=== PATIENT | male | born 1960 | race Caucasian/White ===

== ENCOUNTER 2016-05-08 12:01 | Inpatient (IN) | payer MEDICAID ==
[~2016-05-08] VITALS: Ht 170.2 cm; Wt 63.3 kg
[~2016-05-08 12:01] MED LIST: AUGMENTIN; OXYCODONE; TOPICAL
[2016-05-08 13:31] LABS: Basophils # (auto) 0.1 uL; Basophils % (auto) 1.1 % (0.0-2.0); Eosinophils # (auto) 0.1 uL; Eosinophils % (auto) 0.8 % (0.0-7.0); Hematocrit 43.9 % (41.0-53.0); Hemoglobin 14.1 g/dL (13.5-17.5); Lymphocytes # (auto) 2.5 uL; Mean Corpuscular Volume 87.4 fL (80.0-100.0); Mean Platelet Volume 7.4 fL (7.4-10.4); Monocytes # (auto) 0.8 uL; Neutrophils # (auto) 7.8 uL; Neutrophils % (auto) 69.1 % (37.0-80.0); Platelet Count (auto) 358 10^3/uL (140-450); Red Cell Distribution Width 17.4 % (11.6-16.0); White Blood Cell 11.3 10^3/uL (4.4-10.8)
[2016-05-08 14:02] LABS: Albumin 3.2 g/dL (3.4-5.0); BUN/Creatinine Ratio 18.7; Bilirubin, Total 0.4 mg/dL (0.2-1.0); Potassium 4.1 mmol/L (3.5-5.1); Total Protein 8.5 g/dL (6.4-8.2)
[2016-05-08] MEDS ORDERED: HYDROcodone-ACET 10/325MG TAB PO ONE (16:45)
[2016-05-08] MEDS ORDERED: CLINDAMYCIN 600MG IV 50 ML IV ONE (16:45)
[2016-05-08 17:41] LABS: INR 1.05 (0.9-1.15); Partial Thromboplastin Time 29.4 sec (22.64-33.71); Prothrombin Time 10.8 sec (9.37-12.3)
[2016-05-08] MEDS: SODIUM CHLORIDE 0.9% 1,000 ML IV SCH (22:08)
[2016-05-08 23:14] VITALS: BP 120/78
[2016-05-08] MEDS ORDERED: METH40TA13 PO (23:31)
[2016-05-09] MEDS: CLINDAMYCIN 600MG IV 50 ML IV SCH ×2 (01:00→08:48)
[2016-05-09 04:30] VITALS: BP 127/76
[2016-05-09] MEDS: HYDROcodone-ACET 10/325MG TAB PO PRN ×3 (04:51→22:02)
[2016-05-09 07:02] LABS: Basophils # (auto) 0 uL; Basophils % (auto) 0.4 % (0.0-2.0); Eosinophils # (auto) 0 uL; Eosinophils % (auto) 0.6 % (0.0-7.0); Hematocrit 42.9 % (41.0-53.0); Hemoglobin 13.7 g/dL (13.5-17.5); Lymphocytes # (auto) 1.9 uL; Lymphocytes % (auto) 25.1 % (10.0-50.0); Mean Corpuscular Hemoglobin 27.9 pg (28.0-32.0); Mean Corpuscular Hgb Conc. 31.9 g/dL (32.0-36.0); Mean Corpuscular Volume 87.2 fL (80.0-100.0); Mean Platelet Volume 7.8 fL (7.4-10.4); Monocytes # (auto) 0.5 uL; Neutrophils # (auto) 5.2 uL; Neutrophils % (auto) 66.9 % (37.0-80.0); Platelet Count (auto) 326 10^3/uL (140-450); Red Cell Distribution Width 17.2 % (11.6-16.0); White Blood Cell 7.8 10^3/uL (4.4-10.8)
[2016-05-09 07:06] LABS: Potassium 3.9 mmol/L (3.5-5.1)
[2016-05-09 07:15] LABS: Albumin 2.9 g/dL (3.4-5.0); BUN/Creatinine Ratio 16.7; Calcium 8.8 mg/dL (8.5-10.1)
[2016-05-09 07:18] LABS: Bilirubin, Total 0.4 mg/dL (0.2-1.0); Total Protein 7.8 g/dL (6.4-8.2)
[2016-05-09 09:11] VITALS: BP 135/77
[2016-05-09] MEDS ORDERED: VANCOMYCIN PER PHARMACY 0 MG IV SCH (10:45)
[2016-05-09] MEDS: SODIUM CHLORIDE 0.9% 1,000 ML IV SCH (11:04)
[2016-05-09] MEDS: VANCOMYCIN 1GM/250ML D5W 250 ML IV SCH ×2 (11:43→23:00)
[2016-05-09] MEDS: METHADONE HCL 10 MG TAB PO SCH (12:16)
[2016-05-09 13:00] VITALS: BP 106/49
[2016-05-09 16:55] VITALS: BP 113/61
[2016-05-09] MEDS: PRO-STAT 64 30ML PO SCH (18:00)
[2016-05-09] MEDS: MULTIPLE VITAMINS W/ MINERALS TAB PO SCH (18:07)
[2016-05-09 21:30] VITALS: BP 120/65
[2016-05-09] MEDS: ASCORBIC ACID 500 MG TAB PO SCH (22:02)
[2016-05-10] MEDS: SODIUM CHLORIDE 0.9% 1,000 ML IV SCH ×3 (00:22→23:50)
[2016-05-10 05:00] VITALS: BP 118/73
[2016-05-10] MEDS: HYDROcodone-ACET 10/325MG TAB PO PRN ×2 (05:44→22:24)
[2016-05-10 06:08] LABS: Basophils # (auto) 0 uL; Basophils % (auto) 0.4 % (0.0-2.0); Eosinophils # (auto) 0.2 uL; Eosinophils % (auto) 1.6 % (0.0-7.0); Hematocrit 40.6 % (41.0-53.0); Hemoglobin 12.9 g/dL (13.5-17.5); Lymphocytes # (auto) 3.4 uL; Mean Corpuscular Hemoglobin 27.6 pg (28.0-32.0); Mean Corpuscular Hgb Conc. 31.7 g/dL (32.0-36.0); Mean Corpuscular Volume 87.1 fL (80.0-100.0); Mean Platelet Volume 7.3 fL (7.4-10.4); Monocytes # (auto) 0.8 uL; Monocytes % (auto) 8.4 % (0.0-12.0); Neutrophils # (auto) 5.3 uL; Neutrophils % (auto) 54.6 % (37.0-80.0); Platelet Count (auto) 279 10^3/uL (140-450); Red Cell Distribution Width 17.7 % (11.6-16.0); White Blood Cell 9.6 10^3/uL (4.4-10.8)
[2016-05-10 06:24] LABS: INR 1.03 (0.9-1.15); Prothrombin Time 10.6 sec (9.37-12.3)
[2016-05-10 06:42] LABS: Calcium 8.5 mg/dL (8.5-10.1); Magnesium 2.2 mg/dL (1.6-2.6)
[2016-05-10] MEDS: PRO-STAT 64 30ML PO SCH ×2 (08:43→18:21)
[2016-05-10 09:36] VITALS: BP 110/67
[2016-05-10] MEDS: MULTIPLE VITAMINS W/ MINERALS TAB PO SCH (10:00)
[2016-05-10] MEDS: ASCORBIC ACID 500 MG TAB PO SCH ×2 (10:29→22:23)
[2016-05-10] MEDS: VANCOMYCIN 1GM/250ML D5W 250 ML IV SCH ×2 (11:00→22:31)
[2016-05-10] MEDS: METHADONE HCL 10 MG TAB PO SCH (12:00)
[2016-05-10 16:36] VITALS: BP 106/52
[2016-05-10 22:00] VITALS: BP 108/63
[2016-05-11 05:00] VITALS: BP 103/60
[2016-05-11] MEDS: PRO-STAT 64 30ML PO SCH ×2 (08:00→18:00)
[2016-05-11 08:41] VITALS: BP 111/65
[2016-05-11] MEDS: HYDROcodone-ACET 10/325MG TAB PO PRN ×2 (10:13→17:39)
[2016-05-11] MEDS: MULTIPLE VITAMINS W/ MINERALS TAB PO SCH (10:13)
[2016-05-11] MEDS: ASCORBIC ACID 500 MG TAB PO SCH ×2 (10:13→21:59)
[2016-05-11 10:55] LABS: Basophils # (auto) 0 uL; Basophils % (auto) 0.5 % (0.0-2.0); Eosinophils # (auto) 0.2 uL; Eosinophils % (auto) 2.2 % (0.0-7.0); Hematocrit 39.9 % (41.0-53.0); Hemoglobin 12.7 g/dL (13.5-17.5); Lymphocytes # (auto) 2.6 uL; Mean Corpuscular Hemoglobin 27.9 pg (28.0-32.0); Mean Corpuscular Hgb Conc. 31.8 g/dL (32.0-36.0); Mean Corpuscular Volume 87.8 fL (80.0-100.0); Mean Platelet Volume 7.3 fL (7.4-10.4); Monocytes # (auto) 0.7 uL; Monocytes % (auto) 7.8 % (0.0-12.0); Neutrophils # (auto) 5.1 uL; Neutrophils % (auto) 59.5 % (37.0-80.0); Platelet Count (auto) 249 10^3/uL (140-450); Red Cell Distribution Width 17.4 % (11.6-16.0); White Blood Cell 8.6 10^3/uL (4.4-10.8)
[2016-05-11 11:10] LABS: INR 1.04 (0.9-1.15); Prothrombin Time 10.7 sec (9.37-12.3)
[2016-05-11 11:12] LABS: BUN/Creatinine Ratio 27.3; Calcium 8.5 mg/dL (8.5-10.1); Potassium 4.1 mmol/L (3.5-5.1)
[2016-05-11] MEDS: VANCOMYCIN 1GM/250ML D5W 250 ML IV SCH ×2 (12:13→22:57)
[2016-05-11] MEDS: METHADONE HCL 10 MG TAB PO SCH (12:13)
[2016-05-11 13:00] VITALS: BP 127/77
[2016-05-11] MEDS: ceFAZolin 1GM/50ML D5W 50 ML IV SCH ×2 (14:51→22:00)
[2016-05-11] MEDS: SODIUM CHLORIDE 0.9% 1,000 ML IV SCH (16:21)
[2016-05-11 17:00] VITALS: BP 106/62
[2016-05-11 20:00] VITALS: BP 96/66
[2016-05-11] MEDS: CELECOXIB 100 MG CAP PO SCH (21:59)
[2016-05-11 22:00] VITALS: BP 96/66
[2016-05-12] VITALS (7 sets, daily range): BP systolic 88–109; BP diastolic 52–68
[2016-05-12] MEDS: SODIUM CHLORIDE 0.9% 1,000 ML IV SCH ×2 (05:34→19:01)
[2016-05-12] MEDS: HYDROcodone-ACET 10/325MG TAB PO PRN ×3 (05:34→18:43)
[2016-05-12] MEDS: ceFAZolin 1GM/50ML D5W 50 ML IV SCH ×2 (05:34→14:53)
[2016-05-12] MEDS: PRO-STAT 64 30ML PO SCH ×2 (08:00→18:19)
[2016-05-12] MEDS: ASCORBIC ACID 500 MG TAB PO SCH ×2 (10:17→22:11)
[2016-05-12] MEDS: CELECOXIB 100 MG CAP PO SCH ×2 (10:17→22:11)
[2016-05-12] MEDS: MULTIPLE VITAMINS W/ MINERALS TAB PO SCH (10:17)
[2016-05-12] MEDS: VANCOMYCIN 1GM/250ML D5W 250 ML IV SCH ×2 (10:20→23:12)
[2016-05-12] MEDS: METHADONE HCL 10 MG TAB PO SCH (12:17)
[2016-05-13 05:00] VITALS: BP 121/64
[2016-05-13] MEDS: PRO-STAT 64 30ML PO SCH ×2 (07:46→17:54)
[2016-05-13] MEDS: SODIUM CHLORIDE 0.9% 1,000 ML IV SCH ×2 (08:21→11:15)
[2016-05-13 09:15] VITALS: BP 107/64
[2016-05-13] MEDS: ASCORBIC ACID 500 MG TAB PO SCH ×2 (09:32→21:30)
[2016-05-13] MEDS: MULTIPLE VITAMINS W/ MINERALS TAB PO SCH (09:32)
[2016-05-13] MEDS: CELECOXIB 100 MG CAP PO SCH ×2 (09:32→21:30)
[2016-05-13] MEDS: HYDROcodone-ACET 10/325MG TAB PO PRN ×2 (09:33→19:57)
[2016-05-13] MEDS: VANCOMYCIN 1GM/250ML D5W 250 ML IV SCH ×2 (11:10→23:24)
[2016-05-13] MEDS: METHADONE HCL 10 MG TAB PO SCH (12:16)
[2016-05-13 13:00] VITALS: BP 109/60
[2016-05-13 17:00] VITALS: BP 108/63
[2016-05-13 22:00] VITALS: BP 117/51
[2016-05-13] MEDS ORDERED: TEMAZEPAM 15 MG CAP PO ONE (23:15)
[2016-05-14 05:00] VITALS: BP 109/64
[2016-05-14 05:16] LABS: Basophils # (auto) 0 uL; Basophils % (auto) 0.5 % (0.0-2.0); Eosinophils # (auto) 0.4 uL; Eosinophils % (auto) 4.5 % (0.0-7.0); Hematocrit 38.6 % (41.0-53.0); Hemoglobin 12.8 g/dL (13.5-17.5); Lymphocytes # (auto) 3.4 uL; Mean Corpuscular Hgb Conc. 33.1 g/dL (32.0-36.0); Mean Corpuscular Volume 87.5 fL (80.0-100.0); Mean Platelet Volume 7.4 fL (7.4-10.4); Monocytes # (auto) 0.6 uL; Monocytes % (auto) 7.1 % (0.0-12.0); Neutrophils # (auto) 3.9 uL; Neutrophils % (auto) 46.9 % (37.0-80.0); Platelet Count (auto) 247 10^3/uL (140-450); Red Cell Distribution Width 18.2 % (11.6-16.0); White Blood Cell 8.3 10^3/uL (4.4-10.8)
[2016-05-14 05:39] LABS: BUN/Creatinine Ratio 30.4; Calcium 8.8 mg/dL (8.5-10.1); Potassium 4.4 mmol/L (3.5-5.1)
[2016-05-14] MEDS: HYDROcodone-ACET 10/325MG TAB PO PRN (06:34)
[2016-05-14] MEDS: PRO-STAT 64 30ML PO SCH (07:54)
[2016-05-14 09:00] VITALS: BP 115/75
[2016-05-14] MEDS: MULTIPLE VITAMINS W/ MINERALS TAB PO SCH (09:06)
[2016-05-14] MEDS: CELECOXIB 100 MG CAP PO SCH (09:06)
[2016-05-14] MEDS: ASCORBIC ACID 500 MG TAB PO SCH (09:06)
[2016-05-14] MEDS: SODIUM CHLORIDE 0.9% 1,000 ML IV SCH (11:40)
[2016-05-14] MEDS: METHADONE HCL 10 MG TAB PO SCH (11:40)
[2016-05-14] MEDS: VANCOMYCIN 1GM/250ML D5W 250 ML IV SCH (11:40)
[2016-05-14] MEDS ORDERED: TEMAZEPAM 15 MG CAP PO PRN (12:30)
[2016-05-14 13:00] VITALS: BP 111/52
[2016-05-14 17:00] VITALS: BP 111/52
[2016-05-14] MEDS ORDERED: TEMAZEPAM 15 MG CAP PO ONE (22:00)
== END 2016-05-14 18:50 | disposition home or self-care (01) | DRG 383 ==
LOC: ER 12:01 → OVERFLOW 12:02 → CENTRAL 21:53
PROVIDERS: ADMIT Family Medicine; ATTEND Internal Medicine Pulmonary Disease
DX: L03.116 Cellulitis of left lower limb (principal); L02.413 Cutaneous abscess of right upper limb; S81.802A Unspecified open wound, left lower leg, initial encounter; B95.62 Methicillin resistant Staphylococcus aureus infection as the cause of diseases classified elsewhere; F17.210 Nicotine dependence, cigarettes, uncomplicated; Z59.0 Homelessness; Y93.89 Activity, other specified; Y92.89 Other specified places as the place of occurrence of the external cause; Y99.8 Other external cause status; W22.8XXA Striking against or struck by other objects, initial encounter
CPT/HCPCS: 36415; 71010; 73590; 80048; 80053; 80202; 83735; 85025; 85610; 85730; 87040; 87077; 87081; 87186; 87205; 94761; 96365; 96366; J0690; J3490

== ENCOUNTER 2017-03-14 22:54 | Emergency (ER) | payer MEDICAID ==
[~2017-03-14] VITALS: Ht 170.2 cm; Wt 63.5 kg
[~2017-03-14 22:54] MED LIST changes: -AUGMENTIN; +METH40TA13 PO; -OXYCODONE; -TOPICAL
[2017-03-15] MEDS ORDERED: SODIUM CHLORIDE 0.9% 1,000 ML IV ONE (07:15)
[2017-03-15] MEDS ORDERED: cefTRIAXone 1GM/10ml IVPUSH 10 ML IV ONE (07:15)
[2017-03-15 07:25] VITALS: BP 113/74
[2017-03-15 07:37] LABS: Basophils # (auto) 0.1 uL; Basophils % (auto) 0.5 % (0.0-2.0); Eosinophils # (auto) 0.2 uL; Eosinophils % (auto) 1.9 % (0.0-7.0); Hematocrit 39.8 % (41.0-53.0); Hemoglobin 13.3 g/dL (13.5-17.5); Lymphocytes # (auto) 2.4 uL; Lymphocytes % (auto) 21.8 % (10.0-50.0); Mean Corpuscular Hgb Conc. 33.4 g/dL (32.0-36.0); Mean Corpuscular Volume 89.7 fL (80.0-100.0); Mean Platelet Volume 6.6 fL (6.9-10.8); Monocytes % (auto) 9.1 % (0.0-12.0); Neutrophils # (auto) 7.4 uL; Neutrophils % (auto) 66.7 % (37.0-80.0); Nucleated Red Blood Cells % 0.1 %; Platelet Count (auto) 283 10^3/uL (140-450); Red Cell Distribution Width 15.5 % (11.8-14.3); White Blood Cell 11.1 10^3/uL (4.4-10.8)
[2017-03-15 07:54] LABS: BUN/Creatinine Ratio 21.9; Calcium 8.9 mg/dL (8.5-10.1)
[2017-03-15 07:57] LABS: Bilirubin, Total 0.3 mg/dL (0.2-1.0)
== END 2017-03-15 07:47 | disposition left against medical advice (07) ==
LOC: ER 22:54
DX: L30.9 Dermatitis, unspecified (principal); E44.1 Mild protein-calorie malnutrition; F11.20 Opioid dependence, uncomplicated; F12.10 Cannabis abuse, uncomplicated; F15.10 Other stimulant abuse, uncomplicated; F17.210 Nicotine dependence, cigarettes, uncomplicated; Z68.21 Body mass index [BMI] 21.0-21.9, adult
CPT/HCPCS: 36415; 80053; 85025; 87040

== ENCOUNTER 2017-11-13 01:11 | Emergency (ER) | payer MEDICAID ==
[~2017-11-13] VITALS: Ht 167.6 cm; Wt 68.0 kg
[2017-11-13 01:20] VITALS: BP 115/82
[2017-11-13] MEDS ORDERED: SODIUM CHLORIDE 0.9% 1,000 ML IV ONE (06:44)
== END 2017-11-13 06:50 | disposition left against medical advice (07) ==
LOC: EDBD 01:11 → ER 01:18
DX: S22.41XA Multiple fractures of ribs, right side, initial encounter for closed fracture (principal); R42 Dizziness and giddiness; R51 Headache; F17.210 Nicotine dependence, cigarettes, uncomplicated; F41.9 Anxiety disorder, unspecified; Z59.0 Homelessness; Y04.2XXA Assault by strike against or bumped into by another person, initial encounter; Y93.89 Activity, other specified; Y92.89 Other specified places as the place of occurrence of the external cause; Y99.8 Other external cause status
CPT/HCPCS: 71045; 71101

== ENCOUNTER 2017-11-13 10:19 | Emergency (ER) | payer MEDICAID ==
[~2017-11-13] VITALS: Ht 162.6 cm; Wt 49.9 kg
[2017-11-13 10:25] VITALS: BP 110/64
[2017-11-13] MEDS ORDERED: KETOROLAC TROMETH 60MG/2ML VIAL IM ONE (10:45)
== END 2017-11-13 13:09 | disposition home or self-care (01) ==
LOC: ER 10:19 → EDBD 10:19 → ER 13:09
DX: S22.41XA Multiple fractures of ribs, right side, initial encounter for closed fracture (principal); F17.210 Nicotine dependence, cigarettes, uncomplicated; R51 Headache; Z59.0 Homelessness; Y08.89XA Assault by other specified means, initial encounter; Y93.89 Activity, other specified; Y92.89 Other specified places as the place of occurrence of the external cause; Y99.8 Other external cause status

== ENCOUNTER 2018-07-21 00:58 | Emergency (ER) | payer MEDICAID ==
[~2018-07-21] VITALS: Ht 170.2 cm; Wt 59.0 kg
[~2018-07-21 00:58] MED LIST changes: +APIX5TAB PO; +ATOR20TA50 PO; +DOXY-216 PO; +MET25T PO; +SACC250C PO
[2018-07-21 01:06] VITALS: BP 117/83
[2018-07-21] MEDS ORDERED: IBUPROFEN 800 MG TAB PO ONE (05:00)
[2018-07-21] MEDS ORDERED: ACETAMINOPHEN 500 MG TAB PO ONE (05:00)
== END 2018-07-21 06:17 | disposition home or self-care (01) ==
LOC: EDBD 00:58 → ER 01:05
DX: M19.90 Unspecified osteoarthritis, unspecified site (principal); M25.572 Pain in left ankle and joints of left foot; M25.571 Pain in right ankle and joints of right foot; M25.522 Pain in left elbow; M25.521 Pain in right elbow; M25.562 Pain in left knee; M25.561 Pain in right knee; M25.512 Pain in left shoulder; M25.511 Pain in right shoulder; M25.532 Pain in left wrist; M25.531 Pain in right wrist
CPT/HCPCS: 93005

== ENCOUNTER 2018-08-12 03:51 | Emergency (ER) | payer MEDICAID ==
[~2018-08-12] VITALS: Ht 170.2 cm; Wt 61.2 kg
[2018-08-12 05:22] LABS: Basophils # (auto) 0 uL; Basophils % (auto) 0.8 % (0.0-2.0); Eosinophils # (auto) 0.3 uL; Eosinophils % (auto) 5.5 % (0.0-7.0); Hematocrit 44.6 % (41.0-53.0); Hemoglobin 14.8 g/dL (13.5-17.5); Lymphocytes % (auto) 37.8 % (10.0-50.0); Mean Corpuscular Hemoglobin 31.7 pg (28.0-32.0); Mean Corpuscular Hgb Conc. 33.1 g/dL (32.0-36.0); Mean Corpuscular Volume 95.5 fL (80.0-100.0); Monocytes # (auto) 0.7 uL; Neutrophils # (auto) 2.2 uL; Neutrophils % (auto) 42.9 % (37.0-80.0); Nucleated Red Blood Cells % 0.2 %; Platelet Count (auto) 215 10^3/uL (140-450); Red Blood Cells 4.67 10^6/uL (4.5-5.90); White Blood Cell 5.2 10^3/uL (4.4-10.8)
[2018-08-12 05:36] LABS: Albumin 2.9 g/dL (3.4-5.0); BUN/Creatinine Ratio 12.1; Calcium 8.4 mg/dL (8.5-10.1); Potassium 3.3 mmol/L (3.5-5.1)
[2018-08-12 05:38] VITALS: BP 101/56
[2018-08-12 05:38] LABS: Bilirubin, Total 0.4 mg/dL (0.2-1.0); Total Protein 7.6 g/dL (6.4-8.2)
[2018-08-12] MEDS ORDERED: CLINDAMYCIN 900MG IV 50 ML IV ONE (05:45)
[2018-08-12] MEDS ORDERED: KETOROLAC TROMETH 30 MG/ML 1ML VIAL IV ONE (05:45)
[2018-08-12 06:23] LABS: INR 1.02 (0.9-1.15)
[2018-08-12] MEDS ORDERED: THIAMINE 100mg/ml INJ (200mg/2ml VIAL) IV ONE (06:30)
[2018-08-12] MEDS ORDERED: ACETAMINOPHEN 325 MG TAB PO PRN (07:15)
[2018-08-12] MEDS ORDERED: TEMAZEPAM 15 MG CAP PO PRN (07:15)
[2018-08-12] MEDS ORDERED: ONDANSETRON HCL 4 MG/2 ML VIAL IV PRN (07:15)
[2018-08-12] MEDS ORDERED: HYDROcodone-ACET 5/325MG TAB PO PRN (07:15)
[2018-08-12] MEDS ORDERED: METOPROLOL TARTRATE 25 MG TAB PO SCH (10:00)
[2018-08-12] MEDS ORDERED: FAMOTIDINE 20 MG TAB PO SCH (10:00)
[2018-08-12] MEDS ORDERED: APIXABAN 5 MG TAB PO SCH (10:00)
[2018-08-12] MEDS ORDERED: CLINDAMYCIN 600MG IV 50 ML IV SCH (14:00)
[2018-08-12] MEDS ORDERED: ATORVASTATIN 20 MG TAB PO SCH (22:00)
== END 2018-08-12 07:34 | disposition left against medical advice (07) ==
LOC: ER 03:52
DX: L03.116 Cellulitis of left lower limb (principal); F04 Amnestic disorder due to known physiological condition; I48.92 Unspecified atrial flutter; F17.210 Nicotine dependence, cigarettes, uncomplicated; Z59.0 Homelessness; Z79.899 Other long term (current) drug therapy
CPT/HCPCS: 36415; 71045; 80053; 83735; 83880; 85025; 85610; 85730; 86141; 93005; 96365; 96375; 99284; J1885; J3411; J3490

== ENCOUNTER 2018-12-04 10:24 | Inpatient (IN) | payer MEDICAID ==
[~2018-12-04] VITALS: Ht 170.2 cm; Wt 48.1 kg
[2018-12-04] MEDS ORDERED: SODIUM CHLORIDE 0.9% 1,000 ML IV ONE ×2 (10:39)
[2018-12-04 11:19] LABS: Basophils # (auto) 0 uL; Eosinophils # (auto) 0 uL; Lymphocytes # (auto) 0.6 uL; Monocytes # (auto) 0.5 uL; Neutrophils # (auto) 4.4 uL
[2018-12-04 11:21] LABS: Basophils % (auto) 0.5 % (0.0-2.0); Hematocrit 45.5 % (41.0-53.0); Hemoglobin 15.2 g/dL (13.5-17.5); Lymphocytes % (auto) 10.4 % (10.0-50.0); Mean Corpuscular Hemoglobin 35.8 pg (28.0-32.0); Mean Corpuscular Hgb Conc. 33.4 g/dL (32.0-36.0); Mean Corpuscular Volume 107.2 fL (80.0-100.0); Monocytes % (auto) 9.2 % (0.0-12.0); Neutrophils % (auto) 79.9 % (37.0-80.0); Nucleated Red Blood Cells % 0.1 %; Red Blood Cells 4.24 10^6/uL (4.5-5.90); Red Cell Distribution Width 17.9 % (11.8-14.3); White Blood Cell 5.5 10^3/uL (4.4-10.8)
[2018-12-04 11:24] LABS: Platelet Count (auto) 50 10^3/uL (140-450)
[2018-12-04 11:28] LABS: Albumin 2.8 g/dL (3.4-5.0); Calcium 8.1 mg/dL (8.5-10.1)
[2018-12-04 11:33] LABS: BUN/Creatinine Ratio 21.7; Bilirubin, Total 2.5 mg/dL (0.2-1.0); Total Protein 6.9 g/dL (6.4-8.2)
[2018-12-04 11:35] LABS: INR 1.27 (0.9-1.15)
[2018-12-04 11:37] LABS: Potassium 2.9 mmol/L (3.5-5.1)
[2018-12-04] MEDS ORDERED: IOHEXOL 300 MG/ML 100ML BOTTLE IJ ONE (11:55)
[2018-12-04] MEDS ORDERED: POTASSIUM EFFERVESENT TAB 25 MEQ PO ONE ×2 (12:00→12:15)
[2018-12-04] MEDS ORDERED: FUROSEMIDE 20 MG/2 ML VIAL IV ONE (12:15)
[2018-12-04 13:11] LABS: Urine Bacteria FEW /hpf (None Seen); Urine Blood Negative /uL (Negative); Urine Mucus FEW (None Seen); Urine Specific Gravity 1.014 (1.001-1.035); Urine WBC 1 /hpf (0 - 3)
[2018-12-04 13:27] LABS: Amphetamine Screen, Urine NEGATIVE (NEGATIVE); Barbiturate Scree,Urine NEGATIVE (NEGATIVE); Benzodiazephine Screen, Urine NEGATIVE (NEGATIVE); Cannabinoid Screen, Urine NEGATIVE (NEGATIVE); Cocaine Screen, Urine NEGATIVE (NEGATIVE); Opiate Scree,Urine POSITIVE (NEGATIVE); Phencyclidine Screen, Urine NEGATIVE (NEGATIVE)
[2018-12-04] MEDS ORDERED: DILTIAZEM HCL 25 MG/5 ML VIAL IV ONE (13:30)
[2018-12-04] MEDS ORDERED: METHADONE HCL 10 MG TAB PO SCH (13:30)
[2018-12-04] MEDS ORDERED: ASPirin 81 mg TAB PO ONE (13:30)
[2018-12-04] MEDS ORDERED: MORPHINE SULF INJ 2 MG/ML SYRINGE 1ML IV PRN ×2 (13:30)
[2018-12-04] MEDS ORDERED: NITROGLYCERIN 0.4 MG SL TAB SL PRN (13:30)
[2018-12-04] MEDS ORDERED: METOPROLOL TARTRATE 25 MG TAB PO ONE (13:30)
[2018-12-04] MEDS ORDERED: LORazepam 2MG/ML-1ML VIAL IV ONE (13:30)
[2018-12-04] MEDS ORDERED: ONDANSETRON HCL 4 MG/2 ML VIAL IV PRN (13:30)
[2018-12-04] MEDS ORDERED: METHADONE HCL 10 MG TAB PO ONE (14:00)
[2018-12-04 14:29] LABS: CRP High Sensitivity 5.27 mg/dL (< 0.3)
[2018-12-04] MEDS: FOLIC ACID 1 MG, MULTIPLE VITAMIN 10 ML, MAGNESIUM SULF SDV 50% 8 MEQ, THIAMINE INJ 100... INJ SCH ×5 (15:10)
--- NOTE | 2018-12-04 16:15 | NUR ---
Telemetry admit from [facility] admitted to Telemetry unit after SBAR received. Patient oriented to Erika colin RN, unit, room, bed, and unit policies regarding patient care and visiting hours. Patient now on continuous telemetry monitoring, tele box #2 and telemetry reading on arrival to unit is A FLUTTER 70. Patient weighed by bed scale and encouraged to call if they need something. All questions and concerns addressed, patient verbalized understanding. BED ALARM ELECTRONICS SCALE TESTER LIGHT WITHIN REACH
--- NOTE | 2018-12-04 16:30 | NUR ---
Med rec Unable to complete patient's home med rec due to patient unable to recall and altered. No NOK or persons to call to verify home meds.
[2018-12-04 16:46] VITALS: BP 92/62
[2018-12-04 17:00] VITALS: BP 92/62
--- NOTE | 2018-12-04 18:04 | NUR ---
WOUND PHOTOS TAKEN
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
--- NOTE | 2018-12-04 19:35 | NUR ---
Opening Shift Note Assumed care of patient, awake and alert to self only. No S/S of distress/SOB or pain. Bed in lowest locked position, side rails up x2, call light within reach, bed alarm on. Dressing to right lateral neck noted to be clean, dry, and intact. Instructed on POC and to call for assist PRN, will continue to monitor for changes Q1hr and PRN.
[2018-12-04 22:00] VITALS: BP 93/65
[2018-12-04] MEDS: DOCUSATE SOD 100 MG CAP PO SCH (22:00)
[2018-12-04] MEDS: METOPROLOL TARTRATE 25 MG TAB PO SCH (22:00)
--- NOTE | 2018-12-04 22:00 | NUR ---
Night Medications Blood pressure noted to be 93/65 with 50 heart rate. Blood pressure and heart rate reassessed and found to be 93/56 with 92 heart rate. Lopressor held at this time. Patient refusing Colace, states he has had diarrhea. Patient instructed to call to inform staff the next time he has a bowel movement, patient verbalized understanding. No s/s of distress, will continue to monitor patient.
--- NOTE | 2018-12-04 22:00 | NUR ---
Hospitalist Paged Patient requesting medication for sleep, no orders noted at this time. yardage caller hospitalist paged, awaiting call back.
--- NOTE | 2018-12-04 22:05 | NUR ---
Hospitalist Returned Page supervisor liquid yeast hospitalist Cecy Oneill PLACEMENT INTERVIEWER returned page at this time, states that she will "put something in". Will monitor for new orders, implement as ordered, and continue to monitor patient.
[2018-12-04] MEDS ORDERED: TEMAZEPAM 15 MG CAP PO ONE (22:15)
--- NOTE | 2018-12-04 23:00 | NUR ---
Wound Care Cleansed patient's sacrum, buttocks, and bilateral upper and lower extremity with mild soap and water. Patient patted dry and Hydraguard cream applied. Patient tolerated well. Will continue to monitor.
[2018-12-05 05:00] VITALS: BP 108/57
--- NOTE | 2018-12-05 06:48 | NUR ---
Closing Note Patient lying in bed, awake and alert. Bed in lowest locked position, side rails up x2, call light within reach, bed alarm on. No s/s of distress. Will endorse care to dayshift RN.
[2018-12-05 07:24] LABS: Basophils # (auto) 0 uL; Eosinophils # (auto) 0 uL; Eosinophils % (auto) 0.2 % (0.0-7.0); Hemoglobin 15.3 g/dL (13.5-17.5); Lymphocytes # (auto) 1.5 uL; Neutrophils # (auto) 4.3 uL; Neutrophils % (auto) 68.2 % (37.0-80.0); White Blood Cell 6.3 10^3/uL (4.4-10.8)
--- NOTE | 2018-12-05 07:25 | NUR ---
Opening Shift Note: Assumed care of patient, awake and alert. No S/S of distress/SOB or pain. Sitting in bed. Bed in lowest locked position, side rails up x 2, call light within reach. Instructed on POC and to call for assist PRN, will continue to monitor for changes Q1hr and PRN.
[2018-12-05 07:26] LABS: Basophils % (auto) 0.2 % (0.0-2.0); Hematocrit 44.3 % (41.0-53.0); Lymphocytes % (auto) 23.7 % (10.0-50.0); Mean Corpuscular Hemoglobin 37.2 pg (28.0-32.0); Mean Corpuscular Hgb Conc. 34.6 g/dL (32.0-36.0); Mean Corpuscular Volume 107.5 fL (80.0-100.0); Monocytes # (auto) 0.5 uL; Monocytes % (auto) 7.7 % (0.0-12.0); Nucleated Red Blood Cells % 0.2 %; Platelet Count (auto) 52 10^3/uL (140-450); Red Blood Cells 4.12 10^6/uL (4.5-5.90); Red Cell Distribution Width 18.2 % (11.8-14.3)
[2018-12-05 07:33] LABS: INR 1.2 (0.9-1.15); Partial Thromboplastin Time 34.2 sec (23.64-32.05)
[2018-12-05 07:40] LABS: Albumin 2.7 g/dL (3.4-5.0); Calcium 8.2 mg/dL (8.5-10.1); Potassium 3.4 mmol/L (3.5-5.1)
[2018-12-05 07:43] LABS: BUN/Creatinine Ratio 17.7; Bilirubin, Total 3.7 mg/dL (0.2-1.0); Total Protein 6.9 g/dL (6.4-8.2)
[2018-12-05 08:13] VITALS: BP 99/61
[2018-12-05] MEDS ORDERED: GADOPENTETATE DIMEGLUMINE (10MMOL/20 ML) VIAL IV ONE (08:57)
[2018-12-05] MEDS: FAMOTIDINE 20 MG TAB PO SCH (09:43)
[2018-12-05] MEDS: METHADONE HCL 10 MG TAB PO SCH (09:44)
[2018-12-05] MEDS: DOCUSATE SOD 100 MG CAP PO SCH ×2 (10:00→21:24)
[2018-12-05] MEDS: METOPROLOL TARTRATE 25 MG TAB PO SCH ×2 (10:00→21:22)
[2018-12-05] MEDS: ASPirin 81 mg TAB PO SCH (10:00)
--- NOTE | 2018-12-05 11:40 | NUR ---
Wound Care: Cleansed patient's bilateral upper and lower extremities, sacrum, and buttocks with mild soap and water. Patient patted dry and Hydraguard cream applied. Patient tolerated well. Will continue to monitor.
--- NOTE | 2018-12-05 11:40 | NUR ---
Patient refused MRI at this time. Stating "I'm in too much pain." Will continue to monitor.
[2018-12-05] MEDS: FOLIC ACID 1 MG, MULTIPLE VITAMIN 10 ML, MAGNESIUM SULF SDV 50% 8 MEQ, THIAMINE INJ 100... INJ SCH ×5 (12:14)
--- NOTE | 2018-12-05 12:54 | NUR ---
NUTRITION CONSULT/ASSESSMENT NOTES Please refer to link notes of nutrition screen form filed under the intervention section of the plan of care for further details. Est. Needs based on IBW (67 kg): 1650 kcal to 2000 kcal (25-30 kcal/kgIBW), 67 gms to 80 gms pro (1.0-1.2 gms/kgIBW). Will continue to monitor pertinent labs and reassess nutrient need prn Thank you for this consult. Addendum: 12/05/18 at [address] Amended: Links added.
[2018-12-05 13:00] VITALS: BP 92/62
[2018-12-05] MEDS ORDERED: GASTROGRAFIN 30 ML SOL ONE (14:38)
[2018-12-05] MEDS ORDERED: POTASSIUM CHL 20 Meq TABLET PO ONE (14:45)
[2018-12-05] MEDS ORDERED: IOHEXOL 300 MG/ML 100ML BOTTLE IJ ONE (15:03)
[2018-12-05] MEDS: POTASSIUM CHL 20 Meq TABLET PO SCH ×2 (15:04→17:21)
[2018-12-05 16:47] VITALS: BP 93/62
--- NOTE | 2018-12-05 18:15 | NUR ---
IV removed by radiology. Attempted to place IV, after one unsuccessful try, patient refused another try. Will relay to the noc shift.
--- NOTE | 2018-12-05 19:25 | NUR ---
Opening Shift Note Assumed care of patient, awake and alert. No S/S of distress/SOB. Patient reporting 8/10 generalized pain, also states he now "wants an IV". Per report from dayshift RN, patient's heart rate has "been in the 140's all day". Will administer pain medication as ordered and attempt IV reinsertion. Will also administer ordered Lopressor, pending stable blood pressure and heart rate assessment. Bed in lowest locked position, side rails up x2, call light within reach, bed alarm on. Instructed on POC and to call for assist PRN, will continue to monitor for changes Q1hr and PRN.
--- NOTE | 2018-12-05 20:02 | NUR ---
Sleeping Pill Spoke with investigation officer hospitalist ARTURO Marinelli, patient requesting another sleeping pill. New order received for Restoril 15 mg PO one time dose. Order read back and verified, will implement and continue to monitor patient.
[2018-12-05] MEDS ORDERED: TEMAZEPAM 15 MG CAP PO ONE (20:15)
--- NOTE | 2018-12-05 20:50 | NUR ---
IV insertion IV access obtained by charge nurse Anahi MILLER, via clean sterile technique by inserting 20 gauge catheter to patient's left hand after three attempts. IV secured properly. No trauma to site. Patient tolerated well. Ordered banana bag reconnected and continues infusing as ordered. No s/s of distress. Will continue to monitor.
[2018-12-05] MEDS: ACETAMINOPHEN 500 MG TAB PO PRN (21:21)
--- NOTE | 2018-12-05 21:22 | NUR ---
Medications Administer Lopressor, Restoril, and Tylenol as ordered. Patient's heart rate remains a-flutter in the 90's to sinus tachycardia in the 140's per manager monitoringconveyor monitor Erika. Will continue to monitor patient.
[2018-12-05 22:17] VITALS: BP 108/74
--- NOTE | 2018-12-05 22:20 | NUR ---
Vagal Maneuver Vagal maneuver attempted twice with patient. Heart rate dropped to the 70's on first try before rising again to the 140's. Maneuver attempted again, no drop in heart rate. No s/s of distress. Will perform EKG and continue care.
--- NOTE | 2018-12-05 22:26 | NUR ---
EKG Patient's heart rate remains sinus tachycardia in the 140's. No s/s of distress. EKG done, machine reading supraventricular tachycardia and 141 beats per minute. EKG shown to button breaker hospitalist ARTURO Marinelli, new order received for 10 mg IV Cardizem one time dose. Order read back and verified. Will implement as ordered and continue to monitor.
[2018-12-05] MEDS ORDERED: DILTIAZEM HCL 25 MG/5 ML VIAL IV ONE (22:30)
--- NOTE | 2018-12-05 22:52 | NUR ---
Hypotension Cardizem prepared as ordered. Vital signs checked prior to Cardizem administration: blood pressure 97/78. 140 heart rate, 98% oxygen saturation. Cardizem held at this time. Charge nurse Anahi MILLER aware of patient's status. Will continue care.
--- NOTE | 2018-12-05 22:55 | NUR ---
motion picture actor hospitalist paged motion picture actor hospitalist paged regarding patient's blood pressure. Awaiting call back. Will continue care.
--- NOTE | 2018-12-06 | NUR ---
Hospitalist Paged No return call from blasting contract miner hospitalist, paged again at this time. Awaiting call back. Will continue care.
--- NOTE | 2018-12-06 00:07 | NUR ---
Hospitalist Returned Paged call center trainer hospitalist ARTURO Marinelli returned page at this time. New order received for 0.5 mg IV Digoxin one time dose. Order read back and verified, will administer as ordered and continue to monitor.
[2018-12-06] MEDS ORDERED: DIGOXIN (250MCG/ML) 2 ML AMPULE IV ONE (00:15)
--- NOTE | 2018-12-06 00:30 | NUR ---
Digoxin Administration Vital signs assessed and found to be blood pressure 103/69, 109 heart rate, 99% oxygen saturation. Patient's apical pulse assessed for one minute and found to be 120 beats per minute. hvac/r service technician Chelsey called and informed of medication administration, told to call for any changes, Chelsey verbalized understanding. Medication administered via IV push over ten minutes, patient tolerated well. No s/s of distress. Will continue to monitor. Addendum: 12/06/18 at 0208 by RAJINDER GUTIÉRREZ RN RN ADDITION: Rate and rhythm monitored o telemetry box by this RN also.
--- NOTE | 2018-12-06 00:45 | NUR ---
Wound Care Cleansed patient's sacrum, buttocks, and bilateral upper and lower extremity with mild soap and water. Patient patted dry and Hydraguard cream applied. New linenes provided. Patient tolerated well. Will continue to monitor.
--- NOTE | 2018-12-06 01:00 | NUR ---
Heart Rate Patient's heart rate and rhythm a-flutter 80's-90's. No s/s of distress. Will continue to monitor.
--- NOTE | 2018-12-06 02:09 | NUR ---
Rounding Patient lying in bed, eyes closed, respirations even and unlabored, appears asleep. No s/s of distress. Heart rate and rhythm a-flutter in the 70's. Will continue to monitor patient.
--- NOTE | 2018-12-06 05:00 | NUR ---
Pain Patient reporting 7/10 pain for 05:00 vital sign check. When asked by RN if patient was pain, patient states he is "fine". No s/s of distress. Will continue to monitor.
[2018-12-06 05:59] VITALS: BP 101/77
--- NOTE | 2018-12-06 07:20 | NUR ---
Opening Shift Note: Assumed care of patient, awake and alert. Patient states "I am having pain all over". Patient notified that pain meds are not due. Bed in lowest locked position, side rails up x2, call light within reach. Instructed on POC and to call for assist PRN, will continue to monitor for changes Q1hr and PRN.
--- NOTE | 2018-12-06 07:32 | NUR ---
Closing Note Patient lying in bed, awake and alert. Bed in lowest locked position, side rails up x2, call light within reach. No s/s of distress. Care endorsed to dayshift RN.
[2018-12-06 08:45] VITALS: BP 111/72
[2018-12-06] MEDS: ASPirin 81 mg TAB PO SCH (10:00)
[2018-12-06] MEDS: DOCUSATE SOD 100 MG CAP PO SCH ×2 (10:00→21:57)
[2018-12-06] MEDS: METHADONE HCL 10 MG TAB PO SCH (10:23)
[2018-12-06] MEDS: FAMOTIDINE 20 MG TAB PO SCH (10:23)
[2018-12-06] MEDS: METOPROLOL TARTRATE 25 MG TAB PO SCH ×2 (10:24→21:55)
--- NOTE | 2018-12-06 12:19 | NUR ---
Dr. Esparza paged. Patient states he is going through withdrawals and having "Dts".
[2018-12-06 12:23] VITALS: BP 153/86
[2018-12-06] MEDS: FOLIC ACID 1 MG, MULTIPLE VITAMIN 10 ML, MAGNESIUM SULF SDV 50% 8 MEQ, THIAMINE INJ 100... INJ SCH ×5 (14:46)
[2018-12-06] MEDS: chlordiazePOXIDE HCL 25 MG CAP PO PRN ×2 (15:11→23:15)
--- NOTE | 2018-12-06 16:17 | NUR ---
Patient refused wound care and hydroguard at this time. Will try again.
[2018-12-06 16:50] VITALS: BP 102/65
--- NOTE | 2018-12-06 18:00 | NUR ---
Patient has small pocket knife on him. Patient refusing to hand it over. Charge nurse notified. Security notified.
--- NOTE | 2018-12-06 18:34 | NUR ---
Patient gave pocket knife to security. House sup put item in safe. Patient notified.
[2018-12-06] MEDS ORDERED: POTASSIUM CHL 20 Meq TABLET PO ONE (19:15)
--- NOTE | 2018-12-06 19:25 | NUR ---
Opening Shift Note Assumed care of patient, awake and alert. No S/S of distress/SOB or pain. Bed in lowest locked position, side rails up x2, call light within reach, bed alarm on. Dressing to right lateral neck noted to be clean, dry, and intact. Instructed on POC and to call for assist PRN, will continue to monitor for changes Q1hr and PRN.
--- NOTE | 2018-12-06 20:35 | NUR ---
Potassium 40 mEq of Potassium administered as ordered. Will administer another 40 mEq in two hours as ordered and continue to monitor patient.
[2018-12-06] MEDS: ACETAMINOPHEN 500 MG TAB PO PRN (21:56)
[2018-12-06 22:00] VITALS: BP 100/59
--- NOTE | 2018-12-06 22:00 | NUR ---
Hospitalist Paged Patient requesting medication for sleep, no orders noted at this time. inbound call center representative hospitalist paged, awaiting call back.
--- NOTE | 2018-12-06 22:35 | NUR ---
Potassium Second dose of 40 mEq of Potassium administered as ordered. Patient tolerating well. Will continue to monitor.
--- NOTE | 2018-12-06 22:50 | NUR ---
Hospitalist Returned Page operations boardman hospitalist Ugo Palomo DIRECTOR PRESALES returned page at this time. New order received for Restoril 15 mg PO one time dose. Order read back and verified, will implement as ordered and continue to monitor patient.
[2018-12-06] MEDS ORDERED: TEMAZEPAM 15 MG CAP PO ONE (23:00)
--- NOTE | 2018-12-06 23:10 | NUR ---
Refusing wound care Patient refused wound care and hydroguard at this time, states he "just wants to sleep". Will try again.
--- NOTE | 2018-12-07 04:00 | NUR ---
Refusing wound care Patient refusing wound care at this time. Patient educated on importance of wound care and hygiene in plan of care, patient continues to refuse. No s/s of distress. Will continue to monitor.
[2018-12-07 05:31] VITALS: BP 148/32
--- NOTE | 2018-12-07 06:55 | NUR ---
Closing Note Patient lying in bed, eyes closed, respirations even and unlabored, appears asleep Bed in lowest locked position, side rails up x2, call light within reach. No s/s of distress. Care endorsed to dayshift RN.
--- NOTE | 2018-12-07 07:39 | NUR ---
Opening Shift Note: Assumed care of patient, awake and alert x3. Patient states that he was confused throughout the night and many "times forgot where I was". Bed in lowest locked position, side rails up x2, call light within reach, bed alarm on. No S/S of distress/SOB or pain. Instructed on POC and to pati lfor assist PRN, will continue to monitor for changes Q1hr and PRN.
[2018-12-07 08:57] LABS: Hepatitis B Surface Antibody Negative
[2018-12-07 09:00] VITALS: BP 120/69
[2018-12-07 09:36] LABS: Hepatitis A Total Antibody Negative
[2018-12-07] MEDS: ASPirin 81 mg TAB PO SCH (10:00)
[2018-12-07] MEDS: DOCUSATE SOD 100 MG CAP PO SCH ×2 (10:00→22:00)
[2018-12-07] MEDS: FAMOTIDINE 20 MG TAB PO SCH (10:14)
[2018-12-07] MEDS: METOPROLOL TARTRATE 25 MG TAB PO SCH (10:14)
[2018-12-07] MEDS: METHADONE HCL 10 MG TAB PO SCH (10:16)
[2018-12-07] MEDS ORDERED: SACUBITRIL-VALSARTAN 24mg/26mg TAB PO ONE (11:00)
[2018-12-07] MEDS ORDERED: FUROSEMIDE 40 MG/4 ML VIAL IV ONE (11:00)
--- NOTE | 2018-12-07 12:38 | NUR ---
Patient refused wound care.
[2018-12-07 13:00] VITALS: BP 101/71
[2018-12-07 13:19] LABS: Hepatitis B Core Total AB Positive; Hepatitis B Surface Antigen Negative (Negative)
[2018-12-07 13:20] LABS: Hepatitis C Antibody Positive (Negative)
--- NOTE | 2018-12-07 13:22 | NUR ---
Patient positive for Hep C
[2018-12-07] MEDS: FOLIC ACID 1 MG, MULTIPLE VITAMIN 10 ML, MAGNESIUM SULF SDV 50% 8 MEQ, THIAMINE INJ 100... INJ SCH ×5 (13:52)
--- NOTE | 2018-12-07 14:57 | NUR ---
Dr. Esparza notified of patients positive Hep. C
--- NOTE | 2018-12-07 15:33 | NUR ---
Patient refused barrier cream Addendum: 12/07/18 at 1533 by LAMBERTO ORLANDO RN RN Amended: Links added.
[2018-12-07 17:00] VITALS: BP 86/55
--- NOTE | 2018-12-07 17:05 | NUR ---
Discharge planning per consult, patient has an order for information regarding homelessness, meds, food, transportation, ETOH and drug abuse. On several occasions throughout the day, I attempted to encounter patient, he was asleep each time and he did not respond to close verbal stimulation. Will try again to encounter patient on 12.08.18 to provide resources. Addendum: 12/07/18 at 1707 by FAUSTO OLIVAREZ Amended: Links added. Addendum: 12/08/18 at 1800 by FAUSTO OLIVAREZ Encounter patient today and he was awake and alert. Patient was provided information (a list of: names, numbers, and email to multiple agencies/facilities) related to the following healthcare social worker to assist patient if needed upon discharge: Government Agencies (to call 211 for assistance), food, health/hospital, homeless shelters, mental health services, laundry, thrift stores, gyms, churches, alcohol/substance abuse, senior citizen services, domestic violence, and legal services. Patient advised that upon discharge he/she will be provided with a sack lunch, clothes and transportation if needed. Patient verbalized understanding. He was provided with the following resources: [facility], [facility], [facility], [employer], [facility], [place], and [facility] the [facility] for food, [facility] and ETOH program, [facility] Recovery program, [facility], for ETOH/Drug Abuse,and [facility] for medicine and transportation. Patient also has an order for SNF placement. Referral sent to the following: [facility], [facility], [facility], and [facility].
[2018-12-07] MEDS: FUROSEMIDE 40 MG/4 ML VIAL IV SCH (18:00)
--- NOTE | 2018-12-07 18:26 | NUR ---
Patient refuse wound care and barrier cream at this time.
--- NOTE | 2018-12-07 19:00 | NUR ---
OPENING NOTE- NOC SHIFT PATIENT IS AN INMATE. ONE FEMALE GUARD AT BEDSIDE. PATIENT IS IN BED, BED IS LOCKED IN LOWEST POSITION, BED RAILS UP X2 AND HEAD OF BED IS UP >30 DEGREES FOR SAFETY PRECAUTIONS. BEDSIDE TABLE IS WITHIN REACH, CALL LIGHT IS WITHIN REACH. PATIENT IS NOT WEARING CUFFS, PER GUARD PATIENT WILL NOT BE WEARING CUFFS DURING THIS STAY. NO OPEN WOUNDS. PATIENT IS COMFORTABLE IN BED, DENIES PAIN AT THIS TIME. DISCUSSED POC WITH PATIENT AND INSTRUCTED PATIENT TO CALL PRN; PATIENT VERBALIZED UNDERSTANDING. WILL CONTINUE TO MONITOR Q1H AND PRN. Addendum: 12/07/18 at 1368 by Reny Sims RN PLEASE DISREGARD THIS NOTE; THIS NOTE IS FOR A DIFFERENT PATIENT.
--- NOTE | 2018-12-07 19:05 | NUR ---
OPENING NOTE- NOC SHIFT PATIENT IS ALERT AND ORIENTED X4. PATIENT IS IN BED, BED IS LOCKED AT LOWEST POSITION, BED RAILS UP X2 AND HEAD OF BED IS UP>30 DEGREES FOR SAFETY PRECAUTIONS. DISCUSSED POC WITH PATIENT AND INSTRUCTED PATIENT TO CALL PRN; PATIENT VERBALIZED UNDERSTANDING. WILL CONTINUE TO MONITOR Q1H AND PRN.
--- NOTE | 2018-12-07 19:15 | NUR ---
PATIENT REFUSED DINNER
[2018-12-07 20:05] VITALS: BP 85/57
--- NOTE | 2018-12-07 20:40 | NUR ---
BP 85/57 PAGED HOSPITALIST
--- NOTE | 2018-12-07 21:00 | NUR ---
RECEIVED ORDERS FOR LOW BP
[2018-12-07] MEDS ORDERED: ALBUMIN 5% 250 ML IV ONE (21:15)
[2018-12-07 21:57] VITALS: BP 85/57
[2018-12-07] MEDS ORDERED: CARVEDILOL 12.5 MG TAB PO SCH (22:00)
[2018-12-07] MEDS ORDERED: SACUBITRIL-VALSARTAN 24mg/26mg TAB PO SCH (22:00)
--- NOTE | 2018-12-08 | NUR ---
BP 97/65 HR 73
[2018-12-08] MEDS: FUROSEMIDE 40 MG/4 ML VIAL IV SCH ×2 (05:35→18:00)
[2018-12-08 05:49] VITALS: BP 87/50
--- NOTE | 2018-12-08 05:59 | NUR ---
BP 87/50 HR 77 AFLUTTER PATIENT IN BED ASYMPTOMATIC. PATIENT WEIGHT IS 48 kg.
--- NOTE | 2018-12-08 06:08 | NUR ---
PAGED HOSPITALIST FOR BP 87/50
--- NOTE | 2018-12-08 06:33 | NUR ---
RECEIVED ORDERS FOR LOW BP
--- NOTE | 2018-12-08 06:45 | NUR ---
ORDER FOR ALBUMIN PROCESSING.
[2018-12-08] MEDS ORDERED: ALBUMIN 5% 250 ML IV ONE (06:50)
--- NOTE | 2018-12-08 07:10 | NUR ---
Opening Shift Note Received report and assumed care,patient checked asleep,easily arousable. No S/S of distress/SOB or pain. Instructed on POC and nursing routines,to call for assistance as needed,call light within reach,will continue to monitor for changes Q1hr and PRN.
--- NOTE | 2018-12-08 07:15 | NUR ---
ENDORSED PATIENT CARE TO DAY SHIFT NURSE MYA MILLER NO S/SX OF DISTRESS OR SOB.
--- NOTE | 2018-12-08 08:30 | NUR ---
Patient reminded to keep NPO no food or water at this time,explain importance of pending Barrium Swallow Study,patient verbalied understanding.
[2018-12-08 09:00] VITALS: BP 92/53
[2018-12-08] MEDS ORDERED: BARIUM SULFATE 98% 340 GM PWDR ONE (09:07)
[2018-12-08] MEDS ORDERED: EZ-GAS II GRANULES (RADIOLOGY USE) PO ONE (09:08)
[2018-12-08] MEDS ORDERED: EZ PAQUE SUSP 12OZ BTL ONE (09:08)
[2018-12-08] MEDS ORDERED: GASTROGRAFIN 120 ML SOL ONE (09:12)
[2018-12-08] MEDS: DOCUSATE SOD 100 MG CAP PO SCH ×2 (10:00→21:14)
--- NOTE | 2018-12-08 10:00 | NUR ---
MORNING DOSE OF COREG 12.5 AND ENTRESTO 24-26 HOLD DUE TO SBP 92/53
--- NOTE | 2018-12-08 11:00 | NUR ---
PATIENT BACK TO RADIOLOGY DEPT. TELEMETRY SHOWING HR OF ATRIAL FLUTTER OF 140,NO DISTRESS NO DISCOMFORT,PAGED LINDA ARMENTA CARDIOLOGY CHIEF MEDICAL DIRECTOR AND ALSO DR. CURTIS,AWAITING FOR CALL BACK.
[2018-12-08] MEDS: METHADONE HCL 10 MG TAB PO SCH (11:19)
[2018-12-08] MEDS: FAMOTIDINE 20 MG TAB PO SCH (11:19)
--- NOTE | 2018-12-08 12:30 | NUR ---
KEENAN ARMENTA CARDIOLOGY CEMETERY WARDEN CALLED,INFORMED OF RUNS OF ATRIAL FLUTTER 140'S ESPECIALLY WITH ACTIVITY,FREQUENT PVC'S AND SBP OF LOW 80'S DURING TERMINAL WORKER AND THIS A.M. MADE AWARE COREG AND ENTRESTO WAS HELD,RECEIVED ORDERS FOR PARAMETERS.
--- NOTE | 2018-12-08 12:40 | NUR ---
Called lab and informed to come draw blood works ordered
[2018-12-08 13:00] VITALS: BP 91/66
[2018-12-08 13:31] LABS: Basophils # (auto) 0 uL; Eosinophils # (auto) 0 uL; Neutrophils # (auto) 2.9 uL; White Blood Cell 5.1 10^3/uL (4.4-10.8)
[2018-12-08 13:32] LABS: Basophils % (auto) 0.1 % (0.0-2.0); Eosinophils % (auto) 0.6 % (0.0-7.0); Hematocrit 49.2 % (41.0-53.0); Hemoglobin 16.7 g/dL (13.5-17.5); Lymphocytes # (auto) 1.4 uL; Lymphocytes % (auto) 26.9 % (10.0-50.0); Mean Corpuscular Hemoglobin 37.1 pg (28.0-32.0); Mean Corpuscular Volume 109.1 fL (80.0-100.0); Monocytes # (auto) 0.7 uL; Monocytes % (auto) 14.8 % (0.0-12.0); Neutrophils % (auto) 57.6 % (37.0-80.0); Nucleated Red Blood Cells % 0.3 %; Platelet Count (auto) 128 10^3/uL (140-450); Red Blood Cells 4.51 10^6/uL (4.5-5.90); Red Cell Distribution Width 17.5 % (11.8-14.3)
[2018-12-08 13:43] LABS: BUN/Creatinine Ratio 35.6; Calcium 8.8 mg/dL (8.5-10.1); Potassium 4.4 mmol/L (3.5-5.1)
[2018-12-08 13:49] LABS: Cholesterol 115 mg/dL (< 200)
[2018-12-08 13:52] LABS: HDL Cholesterol 21 mg/dL (40-59); LDL Cholesterol 84 mg/dL (< 100); Triglycerides 110 mg/dL (< 150)
--- NOTE | 2018-12-08 15:19 | NUR ---
Álvaro ARMENTA CARDIOLOGY AUTOMATIC STACKER CALLED AND INFORMED OF LAB WORKS,RECEIVED ORDER FOR DIGOXIN,SEE WRITTEN ORDER
[2018-12-08] MEDS ORDERED: VANCOMYCIN PER PHARMACY 0 MG IV SCH (15:45)
[2018-12-08] MEDS: ASPirin 81 mg TAB PO SCH (15:57)
[2018-12-08] MEDS: DIGOXIN 0.125 MG TAB PO SCH (15:57)
--- NOTE | 2018-12-08 16:20 | NUR ---
MD VISIT DR. CURTIS HERE TO SEE AND EXAMINED PATIENT,EXPLAIN DISEASE PROCESS AND PLAN OF CARE TO PATIENT,MD AWARE OF LOW BP,EPISODES OF ATRIAL FLUTTER WITH FREQUENT PVC'S AND HR OF 140'S,RECEIVED ORDERS
--- NOTE | 2018-12-08 16:29 | NUR ---
assessment Patient is a 58 year old male who is alert and oriented. Prior to admission patient was homeless and was able to function independently. Patient informed me [place] on the [place] of [address] [place]. Patient informed me he had to come to ER because he was very weak and noticed a lump on his neck. Patient may benefit from SNF for rehab prior to going to a snf on discharge. Patient informed me he has been to [facility] and they helped him re-gain some strength in the past. Chelsey MALAGON will provide patient with homeless resources and the homeless waiver form. Patient will be offered food, and clothing on discharge. Patient verbalized understanding and agreed to SNF on discharge. Addendum: 12/08/18 at 1634 by Hayley IVEY Amended: Links added.
[2018-12-08 17:00] VITALS: BP 87/43
[2018-12-08] MEDS: VANCOMYCIN 750mg/250ml 250 ML IV SCH (18:11)
--- NOTE | 2018-12-08 18:15 | NUR ---
VITAL SIGNS TAKEN BP 82/58,HR99,TEMP.96.1,O2 SAT ON ROOM AIR 94%
--- NOTE | 2018-12-08 19:00 | NUR ---
OPENING NOTE- NOC SHIFT PATIENT IS IN BED, BED IS IN LOWEST POSITION, BEDSIDE TABLE WITHIN REACH, CALL LIGHT WITHIN REACH. DISCUSSED POC WITH PATIENT AND INSTRUCTED PATIENT TO CALL PRN; PATIENT VERBALIZED UNDERSTANDING. WILL CONTINUE TO MONITOR Q1H AND PRN. NO S/SX OF DISTRESS OF SOB.
--- NOTE | 2018-12-08 19:20 | NUR ---
STATUS UNCHANGED NO DISTRESS NO DISCOMFORT,REPORT GIVEN TO INCOMING NOC SHIFT RN.
[2018-12-08] MEDS: SODIUM CHLORIDE 0.9% 1,000 ML IV SCH (19:49)
[2018-12-08 20:00] VITALS: BP 94/64
[2018-12-08 21:18] VITALS: BP 94/64
[2018-12-08] MEDS: CARVEDILOL 12.5 MG TAB PO SCH (21:18)
[2018-12-08] MEDS ORDERED: PIPERACILLIN-TAZO 4.5GM 100 ML IV SCH (22:00)
[2018-12-08] MEDS ORDERED: SACUBITRIL-VALSARTAN 24mg/26mg TAB PO SCH (22:00)
[2018-12-08] MEDS: PIPERACILLIN-TAZO 4.5GM 100 ML IV SCH ×2 (22:06→22:08)
[2018-12-09] MEDS: VANCOMYCIN 750mg/250ml 250 ML IV SCH ×2 (04:44→17:59)
[2018-12-09 04:56] VITALS: BP 95/55
[2018-12-09] MEDS: PIPERACILLIN-TAZO 4.5GM 100 ML IV SCH ×3 (06:03→22:34)
[2018-12-09 08:00] VITALS: BP 85/61
[2018-12-09] MEDS: DOCUSATE SOD 100 MG CAP PO SCH ×2 (10:00→22:11)
[2018-12-09] MEDS: DIGOXIN 0.125 MG TAB PO SCH (10:08)
[2018-12-09] MEDS: CARVEDILOL 12.5 MG TAB PO SCH ×2 (10:12→22:00)
[2018-12-09] MEDS: FAMOTIDINE 20 MG TAB PO SCH (10:12)
[2018-12-09] MEDS: ASPirin 81 mg TAB PO SCH (10:13)
--- NOTE | 2018-12-09 10:39 | NUR ---
Zoll Vest: Jonny Sierral Life Vest Rep here to gather information on pt for vest
[2018-12-09 10:45] LABS: Basophils # (auto) 0 uL; Basophils % (auto) 0.9 % (0.0-2.0); Eosinophils # (auto) 0.1 uL; Eosinophils % (auto) 1.5 % (0.0-7.0); Hematocrit 41.8 % (41.0-53.0); Hemoglobin 14.5 g/dL (13.5-17.5); Lymphocytes # (auto) 1.1 uL; Lymphocytes % (auto) 25.2 % (10.0-50.0); Mean Corpuscular Hemoglobin 37.5 pg (28.0-32.0); Mean Corpuscular Hgb Conc. 34.5 g/dL (32.0-36.0); Mean Corpuscular Volume 108.7 fL (80.0-100.0); Monocytes # (auto) 0.8 uL; Monocytes % (auto) 17.6 % (0.0-12.0); Neutrophils # (auto) 2.3 uL; Neutrophils % (auto) 54.8 % (37.0-80.0); Nucleated Red Blood Cells % 0.1 %; Platelet Count (auto) 112 10^3/uL (140-450); Red Blood Cells 3.85 10^6/uL (4.5-5.90); Red Cell Distribution Width 17.3 % (11.8-14.3); White Blood Cell 4.3 10^3/uL (4.4-10.8)
[2018-12-09 10:48] LABS: Albumin 2.6 g/dL (3.4-5.0); BUN/Creatinine Ratio 26.2; Calcium 8.3 mg/dL (8.5-10.1); Potassium 3.9 mmol/L (3.5-5.1)
[2018-12-09 10:51] LABS: Bilirubin, Total 1.5 mg/dL (0.2-1.0)
[2018-12-09 12:00] VITALS: BP 92/51
--- NOTE | 2018-12-09 12:44 | NUR ---
Nutrition Follow-up Notes Wt.: 46.9 kg Pt was sleeping with no family by beside. per records pt with mass in neck unable to do MRI due to pain. pt with no distress noted per nursing. pt is currently on cardiac diet soft with inadequate PO of < 50% x 4 per RN doc Est. Needs based on IBW (67 kg): 1650 kcal to 2000 kcal (25-30 kcal/kgIBW), 67 gms to 80 gms pro (1.0-1.2 gms/kgIBW). Will continue to monitor pertinent labs and reassess nutrient need prn Labs: CA 8.3 L, ALB 2.6 L, COLIN 1.5 H Skin: Jorge Luis scale 16, mod risk, pt's with multiple scabs and bx at neck site per territory outside sales manager. GI: Pt had 2 BM this morning per territory outside sales manager. PES: Increased nutrient needs r/t current/chronic medical condition aeb 70% IBW, BMI 16.2 kg/m2, cachectic, hx of significant wt loss, mod hypoalbuminemia Altered nutrition related lab values r/t current/chronic medical condition aeb hyperglycemia, hyponatremia, hypokalemia, elev. LFTs, hyperbilirubinemia, hypocalcemia and mod hypoalbuminemia Will continue to monitor PO intake, skin status, pertinent labs and weight trend. F/u in 3-5 days. Rec.: 1.) Consider Ensure Enlive 1 carton TID. 2.) If Albumin level continues trending down, consider Prostat 1 pkt BID. 3.) Consider daily MVI with minerals and Ascorbic acid 500 mgs BID. 4.) Consider close supervision and feeding assistance prn during meals. 5.) Refer pt to RD for further nutrition education and weight monitoring upon discharge. 6.) Continue current plan of care.
[2018-12-09] MEDS: METHADONE HCL 10 MG TAB PO SCH (14:41)
[2018-12-09] MEDS: SODIUM CHLORIDE 0.9% 1,000 ML IV SCH (15:15)
--- NOTE | 2018-12-09 16:05 | NUR ---
Discharge planning per consult, patient has orders for SNF placement. Referral sent to [facility], placed a follow up call, spoke with Ole and was advised that they will accept patient. Request for auth sent to [facility], placed a follow up call, spoke with Pa and was advised that the CM is reviewing it and to follow up with him tomorrow for a decision, auth is pending review. Addendum: 12/09/18 at 1609 by FAUSTO OLIVAREZ Amended: Links added.
[2018-12-09 17:00] VITALS: BP 84/50
[2018-12-09 20:00] VITALS: BP 98/54
[2018-12-09 22:00] VITALS: BP 75/47
[2018-12-10] MEDS: VANCOMYCIN 750mg/250ml 250 ML IV SCH (04:55)
[2018-12-10 05:00] VITALS: BP 82/54
[2018-12-10] MEDS: PIPERACILLIN-TAZO 4.5GM 100 ML IV SCH ×2 (05:28→13:56)
[2018-12-10 08:00] VITALS: BP 83/55
[2018-12-10] MEDS ORDERED: VANCOMYCIN 750mg/250ml 250 ML IV SCH (10:00)
[2018-12-10] MEDS: CARVEDILOL 12.5 MG TAB PO SCH ×2 (10:00→21:54)
[2018-12-10] MEDS: ASPirin 81 mg TAB PO SCH (10:14)
[2018-12-10] MEDS: DOCUSATE SOD 100 MG CAP PO SCH ×2 (10:15→21:54)
[2018-12-10] MEDS: DIGOXIN 0.125 MG TAB PO SCH (10:15)
[2018-12-10] MEDS: FAMOTIDINE 20 MG TAB PO SCH (10:16)
[2018-12-10] MEDS: METHADONE HCL 10 MG TAB PO SCH (10:16)
[2018-12-10] MEDS: SODIUM CHLORIDE 0.9% 1,000 ML IV SCH (13:40)
[2018-12-10 17:00] VITALS: BP 84/58
--- NOTE | 2018-12-10 20:00 | NUR ---
Midline Placement: Patient educated on need for midline placement. All risks and benefits explained and all questions and concerns addresses prior to procedure. 18g/10cm midline inserted via R BASILIC vein using Ultrasound. Sterile technique utilized. Blood return obtained from SINGLE lumen and flushed easily with NS using proper technique. Midline secured with saline lock; biodisc and occlusive dressing applied. Primary RN notified. Midline lot # [id number].
[2018-12-11 05:49] VITALS: BP 98/65
[2018-12-11 07:01] LABS: BUN/Creatinine Ratio 21.8; Calcium 8.6 mg/dL (8.5-10.1)
[2018-12-11 08:00] VITALS: BP 99/62
[2018-12-11] MEDS: CARVEDILOL 12.5 MG TAB PO SCH (10:00)
[2018-12-11] MEDS: DOCUSATE SOD 100 MG CAP PO SCH (10:00)
[2018-12-11] MEDS: ASPirin 81 mg TAB PO SCH (10:32)
[2018-12-11] MEDS: METHADONE HCL 10 MG TAB PO SCH (10:34)
[2018-12-11] MEDS: FAMOTIDINE 20 MG TAB PO SCH (10:34)
[2018-12-11] MEDS: DIGOXIN 0.125 MG TAB PO SCH (10:34)
--- NOTE | 2018-12-11 11:44 | NUR ---
TRANSFER faxed transfer packet to [facility]. I paged Dr. Bose to call me with his cell # so [facility] can contact him, await his response
--- NOTE | 2018-12-11 11:54 | NUR ---
I called Dr. Bose about tranfer to [facility] , Dr. Bose does not want pt to go to transfer [facility] , he just wants pt f/u with cancer and ent specialist at [facility] and has given the Ph # to UC[facility] Barbosa
[2018-12-11 12:00] VITALS: BP 107/73
--- NOTE | 2018-12-11 14:04 | NUR ---
ZOLL VEST VENDOR AT BEDSIDE
--- NOTE | 2018-12-11 16:37 | NUR ---
Discharge planning per consult, patient has order to dc to SNF. Referral faxed, placed a follow up call, spoke with [facility] ([phone]) has agreed to accept this patient to room [address] Blackman (rick Joey). Transportation referral faxed to [facility], placed a follow up call, spoke with Zeinab and she confirmed they have received the request for a 6:30pm warp picker via [employer]. [facility] called back to confirm it will be [facility] ([phone]) that will transport patient. [facility] SNF auth is [id number]. Patient had his Zoll life vest delivered and fitted today by Andi from [employer]. Patient was advised that he was accepted at [facility] and he is in agreement. His only concern was that he will still be receiving his 90mg of methadone daily as the last time they only gave him 40mg. I advised patient that legally they have to administer what his prescribed dosage is, and that a doctor may taper the amount, but he should be notified of any changes in treatment. He verbalized understanding. Nurse Hurtado was advised of the dc plan. Addendum: 12/11/18 at 1656 by FAUSTO OLIVAREZ Amended: Links added.
[2018-12-11 17:00] VITALS: BP 107/76
--- NOTE | 2018-12-11 17:41 | NUR ---
REPORT GIVEN TO RAVIN. REPORT GIVEN TO ANGELA DELONG AT [facility].
--- NOTE | 2018-12-11 19:30 | NUR ---
Opening Shift Note Assumed care of patient, awake and alert. No S/S of distress/SOB or pain. Bed in lowest locked position, side rails up x2, call light within reach. Instructed on POC and to call for assist PRN, will continue to monitor for changes Q1hr and PRN.
--- NOTE | 2018-12-11 19:50 | NUR ---
Transfer to [place] Discharge instructions given as ordered by roberta Rollins RN report. Encourage to follow up with PMD as instructed. All questions and concerns addressed. Patient verbalized understanding. Medication reconciliation form completed and copy given to patient by era RN. All personal belongings returned to patient, including personal pocket knife. Midline remains intact and patent. Telemetry unit returned to ICU by this RN. Patient taken to vehicle via gurney with all personal belongings accompanied by transport staff. Zoll life vest and all accessories with patient at this time. No distress noted at time of departure.
== END 2018-12-11 19:50 | DRG 110 ==
LOC: EDBD 10:24 → ER 10:24 → TELE 10:25 → TELE-EAST 16:43
PROVIDERS: ADMIT Nurse Practitioner Acute Care; ATTEND Internal Medicine Pulmonary Disease
PROC: 0JB43ZX Excision of Right Neck Subcutaneous Tissue and Fascia, Percutaneous Approach, Diagnostic (ICD-10-PCS; principal; 2018-12-11)
DX: C76.0 Malignant neoplasm of head, face and neck (principal); E43 Unspecified severe protein-calorie malnutrition; I50.43 Acute on chronic combined systolic (congestive) and diastolic (congestive) heart failure; F10.231 Alcohol dependence with withdrawal delirium; D69.6 Thrombocytopenia, unspecified; C79.89 Secondary malignant neoplasm of other specified sites; I48.92 Unspecified atrial flutter; E87.1 Hypo-osmolality and hyponatremia; I11.0 Hypertensive heart disease with heart failure; I42.9 Cardiomyopathy, unspecified; F11.20 Opioid dependence, uncomplicated; J43.9 Emphysema, unspecified; T40.2X5A Adverse effect of other opioids, initial encounter; E87.6 Hypokalemia; R74.0 Nonspecific elevation of levels of transaminase and lactic acid dehydrogenase [LDH]; B19.20 Unspecified viral hepatitis C without hepatic coma; D75.89 Other specified diseases of blood and blood-forming organs; F17.210 Nicotine dependence, cigarettes, uncomplicated; I25.10 Atherosclerotic heart disease of native coronary artery without angina pectoris; F41.9 Anxiety disorder, unspecified; Z59.0 Homelessness; Z79.01 Long term (current) use of anticoagulants; Z79.82 Long term (current) use of aspirin; Z79.899 Other long term (current) drug therapy; Z82.3 Family history of stroke; Z68.1 Body mass index [BMI] 19.9 or less, adult
CPT/HCPCS: 10022; 36415; 70491; 71045; 71250; 74177; 74220; 76705; 76942; 80048; 80053; 80061; 80202; 80307; 81001; 82533; 83605; 83615; 83735; 83880; 84146; 84154; 84443; 84484; 85025; 85610; 85730; 86141; 86703; 86704; 86706; 86708; 86803; 87040; 87086; 87088; 87186; 87340; 93005; 93306; 96361; 96374; 96375; G0378; J2543